=== PATIENT | male | born 1940 | race Caucasian/White ===

== ENCOUNTER → 2019-01-11 | Outpatient (CLI) | payer MEDICARE, OTHER ==
[~2019-01-11] MED LIST: ACET-1966 PO; ACET500T68 PO; AMOX-559 PO; ASPI-1471 PO; ASPI-757 PO; ASPI500T53 PO; ASPI81TA94 PO; BENZ200C15 PO; CALC11776 PO; CHOL100052 PO; CHOL200018 PO; CYAN1TAB58 PO; DIPH-741 PO; FAMO1TAB PO; FINA5TAB67 PO; FLU180SY11 IM; FLU45SYR17 IM; FLU45SYR25 IM ONLY; FLU60SYR30 IM ONLY; FLUT9.9S; GLYC1DRO2 OP; GUAI1200 PO; HYDR-385 PO; IBUP-136 PO; LEV125 PO; MELO-207 PO; MOMR; MOMR ENA; MULT-885 PO; NAPR220T86 PO; PNEU0.5D3 IM; PSYL3.4P2 PO; ROSU10TA5 PO; SODI3.5O14 OP; TRIA10.8; VIT1CAPS32 PO; [UNRECOGNIZED DRUG - CODE] PO
== END ==
LOC: LAB 07:30
PROVIDERS: ATTEND Emergency Medicine
DX: E78.5 Hyperlipidemia, unspecified (principal); G62.9 Polyneuropathy, unspecified
CPT/HCPCS: 36415; 82465; 82607; 83718; 84478